=== PATIENT | female | born 1970 | race Caucasian/White ===

== ENCOUNTER 2018-04-07 11:26 | Emergency (ER) | payer BC ==
[~2018-04-07] VITALS: Ht 172.7 cm; Wt 104.5 kg
[2018-04-07 11:29] VITALS: BP 131/82; TEMP 99.1
[2018-04-07 11:53] LABS: COLLECTION METHOD CLEAN CATCH
[2018-04-07 11:59] LABS: MUCOUS Present /lpf; PH 5 (5-8); SQUAMOUS EPITHELIAL 0-2 /hpf; URINE APPEARANCE Clear; URINE BACTERIA None Seen /hpf; URINE BILIRUBIN Negative (NEGATIVE); URINE BLOOD Negative (NEGATIVE); URINE COLOR Yellow; URINE GLUCOSE Negative (NEGATIVE); URINE KETONE Negative (NEGATIVE); URINE LEUKOCYTE ESTERASE Negative (NEGATIVE); URINE NITRATE Negative (NEGATIVE); URINE PROTEIN(semi-quant) Negative (NEGATIVE); URINE RBC None Seen /hpf; URINE UROBILINOGEN Negative (NEGATIVE)
[2018-04-07 12:20] VITALS: PULSE 84
== END 2018-04-07 12:20 | disposition home or self-care (01) ==
LOC: COL.ER 11:26
PROVIDERS: Family Medicine
DX: S30.0XXA Contusion of lower back and pelvis, initial encounter (principal); W00.0XXA Fall on same level due to ice and snow, initial encounter

== ENCOUNTER → 2018-06-29 | Outpatient (CLI) | payer BC | LOC: MC.RAD 07:14 | DX: Z12.31 Encounter for screening mammogram for malignant neoplasm of breast (principal); N64.89 Other specified disorders of breast ==

== ENCOUNTER → 2018-07-04 | Outpatient (CLI) | payer BC | LOC: MC.RAD 10:54 | DX: N63.22 Unspecified lump in the left breast, upper inner quadrant (principal); N64.89 Other specified disorders of breast | CPT/HCPCS: G0279 ==

== ENCOUNTER → 2018-07-10 | Outpatient (CLI) | payer BC | LOC: MC.RAD 08:15 | DX: N63.22 Unspecified lump in the left breast, upper inner quadrant (principal); Z98.82 Breast implant status ==